=== PATIENT | female | born 1995 | race African-American/Black ===

== ENCOUNTER 2024-10-07 21:06 | Observation (INO) | payer MEDICAID ==
[~2024-10-07] VITALS: Ht 160 cm; Wt 79.4 kg
[~2024-10-07 21:06] MED LIST: ALBU0.084; BECL0.07; NEBUMIS40
[2024-10-07] MEDS: TERBUTALINE SULFATE 1 MG/ML 1ML VIAL SC SCH (22:33)
[2024-10-07] MEDS: LACTATED RINGER'S 1,000 ML IV ONE (22:45)
[2024-10-07] MEDS ORDERED: BETAMETHASONE ACET (30mg/5ml) 5ml Vial 6mg/ml ONE (23:32)
--- NOTE | 2024-10-07 23:57 | DVH ---
ULTRASOUND BIOPHYSICAL PROFILE ULTRASOUND OB LIMITED CLINICAL HISTORY: No PNC. Decreased movement. Contractions. COMPARISON: None TECHNIQUE: Real-time grayscale, color flow and M-mode imaging of the gravid uterus is performed. FINDINGS: Single living intrauterine gestation. Cephalic presentation. heart rate 144 beats per minute. The placenta is anterior. The cervix measures approximately 3 cm in length. No definite evidence of a bruption or previa at this time. measurements (cm): BPD 8.5, HC 30.7, AC 29.7, FL 6.9. Estimated weight: 2390 g Amniotic fluid index: 14.6 cm Biophysical profile: 8 out of 8. (2 breathing, 2 activity, 2 tone, 2 TERENCE) Finisher [employer] reports good movement on real-time imaging. IMPRESSION: Single living intrauterine gestation as above. Biophysical profile score 8/8.
[2024-10-08] MEDS: BETAMETHASONE ACET (30mg/5ml) 5ml Vial 6mg/ml IM SCH (00:04)
[2024-10-08] MEDS: LACTATED RINGER'S 1,000 ML IV SCH (00:05)
--- NOTE | 2024-10-08 00:26 | DVHDS2 ---
Physician Discharge Progress N Final Diagnosis: IUP @ 33w 3d Contraction Limited care Operations or Procedures: Operations or Procedures EFM IV hydration Tocolysis Bio Physical Profile Steroids to accelerate lung maturity Other Interventions Other Interventions S: 28yo G3,2001 [place] [facility]. She reports EDC of 11/23/24 and started feeling rectal pressure 2-3hours ago; went to [place] but unable to have a bowel movement. Hence she decides to come in to r/o PTL Also reports decreased movements, no LOF, or vaginal bleeding, no STOREY or vision changes. States she receives care with [place] and last visit was in August, yet to start care with an Restaurant Cashier since she just moved here Denies any urinary symptom PMH: h/o Asthma, no surgery OB Hist: G3,2001, NSVDx2, PPH with G#1 FAMILY HISTORY: Noncontributory. REVIEW OF SYSTEM Constitutional: No symptom reported Ears, Nose, & Throat: No symptom reported Eyes: No symptom reported Pulmonary/Respiratory: No symptom reported Cardiovascular: No symptom reported Gastrointestinal: No symptom reported Genitourinary: No symptom reported Musculoskeletal: No symptom reported Skin: No symptom reported Psychiatric: No symptom reported Endocrine: No symptom reported Hematologic/Lymphatic: No symptom reported O: PE: A&O x3, NAD, well groomed. pleasant. Appropriate and normal mood and affect Afebrile, VSS Respiration unlabored Heart and lungs sounds: normal Abdomen: Gravid, non-tender to palpation. Fundal Ht 38cm. Cephalic presentation Extremities: No edema VE: Close/ long/posterior cervix, medium in consistency UC: q2-4min x 60secs FHR baseline 140bpm with moderate variability and accelerations, no deceleration A: IUP @ 33w 3d Contractions Category 1 EFM Tracing P: IV hydration with LR Tocolysis with Terbutaline OB US complete and Biophysical Profile Re-assessment at 0001 UCs: occasional contractions 1 in 30minutes FHR baseline 140bpm with moderate variability and accelerations, no deceleration Patient declined repeat VE Plan: Administer Celestone 12mg intramuscularly; i.m; repeat in 24 hours Discharge home 3rd trimester emergency signs and symptoms reviewed with patient, advised to go to nearest hospital / ER if any Advised to f/u on seeking OB care provider vesna; given information to OB clinic and [facility]. Condition on Discharge: Stable Disposition: Home Discharge Instructions: Diet: Regular Diet comment: Routine regular diet rich in fiber, protein, iron and vitamin C with adequate fluid intake. Activity: No Restrictions, As Tolerated Activity comment: Balance activities with rest periods No heavy lifting, pushing or straining. Follow Up/Referral: 3rd trimester emergency S&S FMC, PTL & pre-eclampsia precautions reviewed with pt; advised to seek health care if any Advised to establish care here in the [facility] and to return if any symptom Medications: None Follow Up Care: Discharge Statement: 3rd trimester emergency S&S FMC, PTL & pre-eclampsia precautions reviewed with pt; advised to seek health care if any "Patient was advised to return to the ER or call 911 if any headaches, dizziness, shortness of breath, chest pain, abdominal pain, bleeding, fevers, or worsening of medical condition. Patient was counseled about treatment plan, medications, possible side effects, patientverbalized understanding. All questions were answered to the best of my ability. This discharge took greater then 30 minutes in planning, reviewing d ocumentation, counseling the patient, and discussing with other team members." Visit Coding OBGYN Date of Service: Oct 08, 2024 Billing Provider: ZACK GUZMAN CNM FACE WORKER Common Visit Codes: 47181-GPR/OBS SAME DATE ([facility]) FACE WORKER Procedure Codes: 70968-70- NON-STRESS TEST ZACK GUZMAN CNM Oct 08, 2024 00:25
[2024-10-08] MEDS ORDERED: BETAMETHASONE ACET (30mg/5ml) 5ml Vial 6mg/ml IM SCH (10:00)
[2024-10-08] MEDS ORDERED: NITR-87 PO (22:59)
[2024-10-08] MEDS ORDERED: PREN-96 PO (23:07)
== END 2024-10-08 00:43 | disposition home or self-care (01) ==
LOC: LDRP 21:06
PROVIDERS: ADMIT Obstetrics & Gynecology; ATTEND Obstetrics & Gynecology
DX: O60.03 Preterm labor without delivery, third trimester (principal); O99.513 Diseases of the respiratory system complicating pregnancy, third trimester; J45.909 Unspecified asthma, uncomplicated; O09.33 Supervision of pregnancy with insufficient antenatal care, third trimester; Z3A.33 33 weeks gestation of pregnancy; Z79.899 Other long term (current) drug therapy; Z98.890 Other specified postprocedural states
CPT/HCPCS: 59025; 76805; 76819; 81002; 94760; 96360; 96361; 96372; G0378; J0702; J3105

== ENCOUNTER 2024-10-08 11:20 | Observation (INO) | payer MEDICAID ==
[~2024-10-08] VITALS: Ht 160 cm; Wt 77.1 kg
[2024-10-08] MEDS: BETAMETHASONE ACET (30mg/5ml) 5ml Vial 6mg/ml IM ONE (20:23)
[2024-10-08] MEDS: TERBUTALINE SULFATE 1 MG/ML 1ML VIAL SC SCH (21:22)
[2024-10-08] MEDS ORDERED: cefTRIAXone SOD 1,000 MG VL IV ONE (21:30)
[2024-10-08] MEDS: cefTRIAXone SOD 1,000 MG VL IM ONE (22:42)
--- NOTE | 2024-10-08 22:48 | DVHDS2 ---
Physician Discharge Progress N Final Diagnosis: IUP at 33w 4d Contractions UTI Operations or Procedures: Operations or Procedures S: Ms Morris presents to place for 2nd dose of Celestone. She reports frequent urination; every five minutes and volume is just a little. She reports active normal movements, no LOF, no VB O: A&O x3, NAD Respiration unlabored No CVA tenderness, Positive suprapubic tenderness Contractions noted on EFM; initially 1 in 10minutes, frequency shortly increased to every 1 to 4minutes. FHR baseline 125 bpm, moderate variability, accelerations present, no decel POC UA: Large Ketones and + leukocytes [place]: + clue cells VE: cervix closed/30%/high/posterior and soft A: IUP at 33w 4d Contractions UTI BV Category I FHR tracing P: Oral hydration Unable to get IV access & pt declined after one failed attempt. Tocolysis with Terbutaline [id number] Celestone 12mg intramuscularly Ceftriaxone 1G intramuscularly Discharged home on Macrobid 100mg PO BID x7d Metronidazole0.75% vaginal gel, 1 applic. PV at bedtime x 5days 3rd trimester emergency S&S FMC, PTL & pre-eclampsia precautions reviewed with pt; advised to seek health care if any Advised to follow up on establishing care here in the [facility]; already given information to [facility] Condition on Discharge: Stable Disposition: Home Discharge Instructions: Diet: Regular Activity: No Restrictions, As Tolerated Activity comment: Balance activities with rest periods Follow Up/Referral: 3rd trimester emergency S&S FMC, PTL & pre-eclampsia precautions reviewed with pt; advised to seek health care if any. Also advised to establish care with OB Provider in the area. Medications: Macrobid tabs and metronidazole 0.75% vaginal gel Follow Up Care: Discharge Statement: 3rd trimester emergency S&S FMC, PTL & pre-eclampsia precautions reviewed with pt; advised to seek health care if any "Patient was advised to return to the ER or call 911 if any headaches, dizziness, shortness of breath, chest pain, abdominal pain, bleeding, fevers, or worsening of medical condition. Patient was counseled about treatment plan, medications, possible side effects, patientverbalized understanding. All questions were answered to the best of my ability. This discharge took greater then 30 minutes in planning, reviewing documentation, counseling the patient, and discussing with other team members." Visit Coding OBGYN Date of Service: Oct 08, 2024 Billing Provider: ZACK GUZMAN CNM AUDIENCE COORDINATOR Common Visit Codes: 79191-NUR/OBS SAME DATE ([facility]) AUDIENCE COORDINATOR Procedure Codes: 61594-44- NON-STRESS TEST ZACK GUZMAN CNM Oct 08, 2024 22:48
[2024-10-08] MEDS ORDERED: NITR-87 PO (22:59)
[2024-10-08] MEDS ORDERED: PREN-96 PO (23:07)
[2024-10-08 23:16] LABS: Vaginal Bacteria Moderate; Vaginal Clue Cells Moderate; Vaginal Epithelial Cells Many; Vaginal Trichomonas Not Present
== END 2024-10-09 01:27 | disposition home or self-care (01) ==
LOC: LDRP 20:01
PROVIDERS: ADMIT Obstetrics & Gynecology; ATTEND Obstetrics & Gynecology
DX: O60.03 Preterm labor without delivery, third trimester (principal); O23.43 Unspecified infection of urinary tract in pregnancy, third trimester; O62.9 Abnormality of forces of labor, unspecified; Z3A.33 33 weeks gestation of pregnancy; N39.0 Urinary tract infection, site not specified; Z98.890 Other specified postprocedural states; Z79.899 Other long term (current) drug therapy
CPT/HCPCS: 59025; 81002; 87210; 94760; 96372; G0378; J0696; J3105

== ENCOUNTER 2024-10-29 13:35 | Observation (INO) | payer MEDICAID ==
[~2024-10-29 13:35] MED LIST changes: +NITR-87 PO; +PREN-96 PO
[2024-10-29 15:03] LABS: Hematocrit 27.5 % (36.0-46.0); Hemoglobin 9.2 g/dL (12.2-16.2); Mean Corpuscular Hemoglobin 28.1 pg (28.0-32.0); Mean Corpuscular Volume 84.1 fL (80.0-100.0); Nucleated Red Blood Cells % 0.1 %
[2024-10-29 15:17] LABS: Alanine Aminotransferase 17 U/L (7-40); Albumin 4.1 g/dL (3.2-4.8); Anion Gap 11 (5-15); BUN/Creatinine Ratio 8.8 (10.0-20.0); Calcium 9.1 mg/dL (8.7-10.4); Glucose 80 mg/dL (74-106); INR 0.92 (0.9-1.15); Partial Thromboplastin Time 25.7 SEC (24.5-34.5); Potassium 3.6 mmol/L (3.5-5.1); Prothrombin Time 9.8 sec (9.3-11.8); Sodium 138 mmol/L (136-145); Total Protein 6.4 g/dL (5.7-8.2)
[2024-10-29 15:18] LABS: Bilirubin, Total 0.3 mg/dL (0.2-1.0)
[2024-10-29 15:20] LABS: Alkaline Phosphatase 140 U/L (46-116); Blood Urea Nitrogen 5 mg/dL (9-23); Carbon Dioxide 19 mmol/L (20-31); Chloride 108 mmol/L (98-107)
[2024-10-29 15:51] LABS: Urine Protein, UAD Negative (Negative)
[2024-10-29 15:55] LABS: Amphetamine Screen, Urine Neg (NEGATIVE); Barbiturate Scree,Urine Neg (NEGATIVE); Benzodiazephine Screen, Urine Neg (NEGATIVE); Cannabinoid Screen, Urine Neg (NEGATIVE); Cocaine Screen, Urine Neg (NEGATIVE); Opiate Scree,Urine Neg (NEGATIVE); Phencyclidine Screen, Urine Neg (NEGATIVE)
--- NOTE | 2024-10-29 16:00 | DVH ---
BIOPHYSICAL PROFILE HISTORY: No care/ Contractions TECHNIQUE: Multiple transabdominal real-time grayscale sonographic images through the gravid uterus of the fetus with duplex Doppler color flow and M-mode spectral analysis FINDINGS: BIOPHYSICAL PROFILE: breathing score: 2 movement score: 2 tone score: 2 Quantitative TERENCE score: 2 (TERENCE: 11.6 Cm.) Total score: 8/8 The cervix 3.61 cm long and appears closed. Single live fetus in cephalic presentation. heart rate 135 beats per minute. Anterior Grade 2-3 placenta without previa or abruption Single live fetus at 36 weeks 3 days Biophysical profile score 8/8 corresponding to an ROYCE of 11/23/2024 IMPRESSION: 1. Biophysical profile score: 8/8
--- NOTE | 2024-10-29 16:08 | DVH ---
LIMITED OB ULTRASOUND > 14 WKS: HISTORY: No care/contractions TECHNIQUE: Multiple real-time grayscale images of the gravid uterus with duplex Doppler color flow an d M-mode spectral analysis. COMPARISON: US OB ULTRASOUND COMP GTR 14 WKS on DOS: 10/07/24 FINDINGS: IUP single live fetus at 36 weeks 1 day based on composite averages of the BPD, head circumference, a bdominal circumference and femur length. Estimated weight 2858 grams. heart rate 135 beats per minute. TERENCE 11.6 cm Cervix appears closed and measures 3.6 cm in length. Cephalic presentation Grade 3 placenta without previa or abruption, in anterior position. IMPRESSION: 1. IUP single live fetus at 36 weeks 1 day AUA corresponding to an ROYCE of 11/25/2024. 2. Estimated weight of 2858 g.
--- NOTE | 2024-10-30 12:28 | DVHDS2 ---
Physician Discharge Progress N Final Diagnosis: no care,abd pain 35wks Operations or Procedures: Operations or Procedures nst reactive reviwed,sono Condition on Discharge: Good Disposition: Home Discharge Instructions: Diet: Regular Activity: No Restrictions, As Tolerated Medications: na Follow Up Care: Specialist: 3d Discharge Statement: "Patient was advised to return to the ER or call 911 if any headaches, dizziness, shortness of breath, chest pain, abdominal pain, bleeding, fevers, or worsening of medical condition. Patient was counseled about treatment plan, medications, possible side effects, patientverbalized understanding. All questions were answered to the best of my ability. This discharge took greater then 30 minutes in planning, reviewing documentation, counseling the patient, and discussing with other team members." Visit Coding OBGYN Date of Service: Oct 30, 2024 Billing Provider: JOSE BLAIR DO CHLORINATOR Common Visit Codes: 84431-[id number] INP/OBS CARE (HIGH) CHLORINATOR Procedure Codes: 22146-40- NON-STRESS TEST JOSE BLAIR DO Oct 30, 2024 12:28
[2024-11-01 00:06] LABS: Chlamydia Trachomatis, NAA Negative (Negative); Neisseria gonorrhoeae, NAA Negative (Negative)
== END 2024-10-29 15:58 | disposition home or self-care (01) ==
LOC: LDRP 13:35
PROVIDERS: ADMIT Obstetrics & Gynecology; ATTEND Obstetrics & Gynecology
DX: O26.893 Other specified pregnancy related conditions, third trimester (principal); R10.9 Unspecified abdominal pain; O62.9 Abnormality of forces of labor, unspecified; R68.83 Chills (without fever); Z3A.35 35 weeks gestation of pregnancy; Z98.890 Other specified postprocedural states; Z79.899 Other long term (current) drug therapy
CPT/HCPCS: 36415; 59025; 76805; 76819; 80053; 80307; 81002; 81003; 83036; 85025; 85610; 85730; 86703; 86762; 86780; 86803; 86850; 86900; 86901; 87081; 87340; 87491; 87591; 94760; G0378

== ENCOUNTER 2024-11-06 09:20 | Observation (INO) | payer MEDICAID ==
--- NOTE | 2024-11-06 10:30 | DVH ---
Procedure: US BIOPHYSICAL PROFILE 11/06/2024 09:57 AM Indication: CONTRACTIONS Comparison: US OB ULTRASOUND COMP GTR 14 WKS on DOS: 10/29/24, US BIOPHYSICAL PROFILE on DOS: 10/29/24, US OB ULTRASOUND COMP GTR 14 WKS on DOS: 10/07/24 Technique: Sonogram of gravid uterus utilizing grayscale and color techniques. FINDINGS: Single living intrauterine gestation. Presentation: Cephalic Placenta: Anterior heart rate: 130 bpm TERENCE: 13.9 cm, DVP: 2.9 cm Maternal cervix: Not visualized Biophysical Profile: breathing score: 2 movement score: 2 tone: 2 Quantitative TERENCE score: 2 Total score: 8/8 IMPRESSION: 1. Single living as above. 2. Biophysical profile score: 8/8.
--- NOTE | 2024-11-06 11:03 | DVH ---
LIMITED OB ULTRASOUND > 14 WKS: HISTORY: EFW TECHNIQUE: Multiple real-time grayscale images of the gravid uterus with duplex Doppler color flow an d M-mode spectral analysis. TRANSDUCER: Transabdominal COMPARISON: US OB ULTRASOUND COMP GTR 14 WKS on DOS: 10/29/24, US OB ULTRASOUND COMP GTR 14 WKS on DOS : 10/07/24 FINDINGS: IUP single live fetus at 36 weeks and 5 days based on composite averages of the BPD, head circumferen ce, abdominal circumference and femur length Estimated weight 3027 grams heart rate 131 beats per minute TERENCE 13.9 cm Cervix is not visualized Cephalic Presentation AnteriorPlacenta without previa or abruption. IMPRESSION: IUP single live fetus at 36 weeks and 5 days AUA corresponding to an ROYCE of 11/29/2024
--- NOTE | 2024-11-06 16:10 | DVHDS2 ---
Physician Discharge Progress N Final Diagnosis: Suspected excessive growth Poor PNL care Secondary Diagnosis: Encounter for NST Operations or Procedures: Operations or Procedures NST/BPP OB SONO for EFW/TERENCE ALL WNL PATIENT: GRACIE THORNTON ACCT: [id number] UNIT: [id number] : 1995 LOC: [facility] ROOM / BED: TRIAGE1 / A AGE / SEX: 28 / F ADM STATUS: ADM IN SERVICE [id number] ORDERING PHYSICIAN: JOSE BLAIR DO PROCEDURE(s): OBUS - OB ULTRASOUND COMP GTR 14 WKS REASON: EFW ORDER NUMBER(s): [id number], ACCESSION NUMBER(s): [id number] LIMITED OB ULTRASOUND > 14 WKS: HISTORY: EFW TECHNIQUE: Multiple real-time grayscale images of the gravid uterus with duplex Doppler color flow and M-mode spectral analysis. TRANSDUCER: Transabdominal COMPARISON: US OB ULTRASOUND COMP GTR 14 WKS on DOS: 10/29/24, US OB ULTRASOUND COMP GTR 14 WKS on DOS: 10/07/24 FINDINGS: IUP single live fetus at 36 weeks and 5 days based on composite averages of the BPD, head circumference, abdominal circumference and femur length Estimated weight 3027 grams heart rate 131 beats per minute TERENCE 13.9 cm Cervix is not visualized Cephalic Presentation AnteriorPlacenta without previa or abruption. IMPRESSION: IUP single live fetus at 36 weeks and 5 days AUA corresponding to an ROYCE of 0 11/29/2024 Condition on Discharge: Stable Disposition: Home Discharge Instructions: Diet: Regular Activity: No Restrictions, As Tolerated Follow Up/Referral: as scheduled Medications: NA Follow Up Care: Discharge Statement: "Patient was advised to return to the ER or call 911 if any headaches, dizziness, shortness of breath, chest pain, abdominal pain, bleeding, fevers, or worsening of medical condition. Patient was counseled about treatment plan, medications, possible side effects, patientverbalized understanding. All questions were answered to the best of my ability. This discharge took greater then 30 minutes in planning, reviewing documentation, counseling the patient, and discussing with other team members." Visit Coding OBGYN Date of Service: Nov 06, 2024 Billing Provider: VANESA MO DO EPIC RADIANT ANALYST Common Visit Codes: 69878-HLX/OBS SAME DATE ([facility]) EPIC RADIANT ANALYST Procedure Codes: 35541-88- NON-STRESS TEST VANESA MO DO Nov 06, 2024 16:10
== END 2024-11-06 11:05 | disposition home or self-care (01) ==
LOC: LDRP 09:20
PROVIDERS: ADMIT Obstetrics & Gynecology; ATTEND Obstetrics & Gynecology
DX: O36.63X0 Maternal care for excessive fetal growth, third trimester, not applicable or unspecified (principal); Z3A.37 37 weeks gestation of pregnancy; Z98.890 Other specified postprocedural states; Z79.899 Other long term (current) drug therapy
CPT/HCPCS: 59025; 76805; 76819; 81002; G0378

== ENCOUNTER 2024-11-17 10:40 | Observation (INO) | payer MEDICAID ==
--- NOTE | 2024-11-17 11:56 | DVHDS2 ---
Physician Discharge Progress N Final Diagnosis: labor [id number] Operations or Procedures: Operations or Procedures nst reactive reviwed,sono Condition on Discharge: Good Disposition: Home Discharge Instructions: Diet: Regular Activity: No Restrictions, As Tolerated Medications: na Follow Up Care: Specialist: 1d Discharge Statement: "Patient was advised to return to the ER or call 911 if any headaches, dizziness, shortness of breath, chest pain, abdominal pain, bleeding, fevers, or worsening of medical condition. Patient was counseled about treatment plan, medications, possible side effects, patientverbalized understanding. All questions were answered to the best of my ability. This discharge took greater then 30 minutes in planning, reviewing doc umentation, counseling the patient, and discussing with other team members." Visit Coding OBGYN Date of Service: Nov 17, 2024 Billing Provider: JOSE BLAIR DO ELECTRODE TURNER AND FINISHER Common Visit Codes: 58675-UKICTIS OBS CARE (HIGH) ELECTRODE TURNER AND FINISHER Procedure Codes: 33769-23- NON-STRESS TEST JOSE BLAIR DO Nov 17, 2024 11:56
--- NOTE | 2024-11-17 12:26 | DVH ---
BIOPHYSICAL PROFILE HISTORY: EFW TECHNIQUE: Multiple transabdominal real-time grayscale sonographic images through the gravid uterus of the fetus with duplex Doppler color flow and M-mode spectral analysis FINDINGS: BIOPHYSICAL PROFILE: breathing score: 2 movement score: 2 tone score: 2 Quantitative TERENCE score: 2 (TERENCE: 11.8 Cm.) Total score: 8 The cervix not well visualized. Single live fetus in cephalic presentation. heart rate 138 beats per minute. Anterior heterogeneous placenta without previa or abruption Single live fetus at 38 weeks 3 days. Biophysical profile score 8 corresponding to an ROYCE of 11/28/2024. Estimated weight 3530 g IMPRESSION: Biophysical profile score: 8
== END 2024-11-17 12:33 | disposition home or self-care (01) ==
LOC: LDRP 10:40 → UNDOADMOB 10:40 → LDRP 11:18
PROVIDERS: ADMIT Obstetrics & Gynecology
DX: O62.9 Abnormality of forces of labor, unspecified (principal); O26.893 Other specified pregnancy related conditions, third trimester; R10.9 Unspecified abdominal pain; Z3A.39 39 weeks gestation of pregnancy; Z79.899 Other long term (current) drug therapy
CPT/HCPCS: 59025; 76805; 76819; 81002; 94760; G0378

== ENCOUNTER 2024-11-22 22:08 | Inpatient (IN) | payer MEDICAID ==
[~2024-11-22] VITALS: Ht 160 cm; Wt 85.3 kg
[2024-11-22] MEDS ORDERED: LIDOCAINE 2%HCL (LOCAL ANESTH.) INJ 20ML MDV IJ PRN (22:30)
[2024-11-22] MEDS ORDERED: NALBUPHINE HCL 10 MG/1ml INJECTION IV PRN (22:30)
[2024-11-22 23:03] LABS: Hematocrit 26.8 % (36.0-46.0); Hemoglobin 9.1 g/dL (12.2-16.2); Mean Corpuscular Hemoglobin 27.7 pg (28.0-32.0); Mean Corpuscular Volume 81.5 fL (80.0-100.0); Nucleated Red Blood Cells % 0.1 %
[2024-11-22 23:10] LABS: Urine Protein, UAD Negative (Negative)
[2024-11-22 23:23] LABS: INR 0.91 (0.9-1.15); Partial Thromboplastin Time 24.0 SEC (24.5-34.5); Prothrombin Time 9.7 sec (9.3-11.8)
[2024-11-22 23:56] LABS: Alanine Aminotransferase 31 U/L (7-40); Albumin 4.1 g/dL (3.2-4.8); Alkaline Phosphatase 184 U/L (46-116); Anion Gap 10 (5-15); BUN/Creatinine Ratio 7.7 (10.0-20.0); Bilirubin, Total 0.3 mg/dL (0.2-1.0); Blood Urea Nitrogen 5 mg/dL (9-23); Calcium 8.8 mg/dL (8.7-10.4); Carbon Dioxide 18 mmol/L (20-31); Chloride 109 mmol/L (98-107); Glucose 127 mg/dL (74-106); Potassium 3.6 mmol/L (3.5-5.1); Sodium 137 mmol/L (136-145); Total Protein 6.7 g/dL (5.7-8.2)
--- NOTE | 2024-11-22 23:58 | DVHHP2 ---
OB CC & HPI Date Date of Admission: Nov 22, 2024 Patient Identification: : 3 Para: 2 EDC: Nov 23, 2024 EGA: 39.6 Chief Complaints: Reason for admission: induction of labor Indication for induction: other (GDM, A1) Admission Nurse Assessment Rev: Yes History of Present Complaints 28 yo IUP @ 39.6wk presents to labor to labor and delivery for term IOL for GDM, HbA1C 6.1, denies LOF/ VB, STOREY, blurry vision or epigastric pain, endorses +FM, pt states she feels some UC. Pt reports taking keflex for the last two days for UTI. PNC with Dr. Jara at [facility], GBS negative. PNC complicated by GDM,A1 due to elevated HgA1c of 6.1%, pt did not do GTT. Dating based on LMP of 02/15/24, OB hx: #1 - 2015, F, 37 wks, , PPH #2 - 2019, M, 40 wks, , uncomplicated #3 - current, wants to give up for adoption, plan in place Past Medical History Cardiac: No pertinent Hx Pulmonary: Asthma (uses inhaler every morning, last use was 2 days ago) Central Nervous System: No pertinent Hx GI: No pertinent Hx Hemotology/Oncology: No pertinent Hx Hepatobiliary: No pertinent Hx Psychiatric: No pertinent Hx Musculoskeletal: No pertinent Hx Rheumotologic: No pertinent Hx Infectious Disease: No peritnent Hx ENT: No pertinent Hx Renal/: No pertinent Hx Endocrine: No pertinent Hx Dermatology: No pertinent Hx Past Surgical History: No pertinent Hx OB History OB History Care: Good Care Ultrasounds: Normal mid trimester US Obstetrical Complications: Gestational Diabetes Medical Complications: None Allergies: Coded Allergies: NO KNOWN ALLERGIES (Unverified , 09/17/09) Home Meds Reported Medications Vit W/ Ferrous Fumara ( One Daily) Daily Tab, 1 TAB PO DAILY, #90 TAB 3 Refills 10/08/24 Nitrofurantoin Monohydrate Mac (Macrobid) 100 Mg Cap, 100 MG PO for 7 Days, CAP 10/08/24 Beclomethasone Dipropionate (Qvar) 40 Mcg Aer 11/18/11 Albuterol Sulfate (Albuterol Sulfate) 0.083 % Neb 11/18/11 Nebulizers (Nebulizer) Ultrason Mis 09/17/09 Current Medications Current Medications Medications (Trade) Dose Ordered Sig/Yon Route PRN Reason Start Time Stop Time Status Last Admin Lactated Ringer's 1,000 ml @ 125 mls/hr Q8H IV 11/22/24 22:30 Nalbuphine HCl (Nubain) 10 mg Q4HP PRN IV MODERATE PAIN (4-6 PAIN SCALE) 11/22/24 22:30 Diagnostic Test (Pha) (Accu-Chek Comfort Curve T) 1 strip Q4HR 11/23/24 02:00 Witch Sonal (Tucks) 1 pad PRN PRN TOP PERINEAL AREA DISCOMFORT 11/22/24 22:30 Sodium Lauryl Sulfate (Phisoderm) 240 ml PRN PRN TOP PERINEAL AREA DISCOMFORT 11/22/24 22:30 Benzocaine (Dermoplast) 1 applic PRN PRN TOP PERINEAL AREA DISCOMFORT 11/22/24 22:30 Misoprostol (Cytotec) 50 mcg Q4HPRN PRN PO CERVICAL RIPENING 11/22/24 22:30 Lidocaine HCl (Xylocaine) 20 ml ONCE PRN IJ PERINEAL AREA DISCOMFORT 11/22/24 22:30 Sodium Chloride 100 ml @ 100 mls/hr Q1H IV 11/22/24 23:30 11/23/24 00:29 Family & Social History Family/Social History Past Family/Social History: denies any family med hx, denies use of alcohol or drugs with this Blood Type: A+ Rubella: immune RPR/VDRL: Negative GBS Status: Negative HBsAG: Negative Review of Systems Constitutional: No symptom reported Ears, Nose, & Throat: No symptom reported Eyes: No symptom reported Pulmonary/Respiratory: No symptom reported Cardiovascular: No symptom reported Gastrointestinal: No symptom reported Genitourinary: No symptom reported Musculoskeletal: No symptom reported Skin: No symptom reported Psychiatric: No symptom reported Endocrine: No symptom reported Hemotologic/Lymphatic: No symptom reported OB Admission Exam Physical Exam Vitals: VSS, see chart except 1 elevated BP FHR baseline indeterminate, marked variability noted OB sono on 11/17/24: Estimated weight 3530 g, vertex HEENT: TMs Normal, Fontanelles Normal, Nasal Mucosa Normal, Eyes non-injected, Oropharynx Normal, PERRLA, Moist Membranes, EOMI Heart: Rhythm Normal Lungs: Clear Abdomen: Gravid Extremities: Normal Reflexes: Normal Pelvic Exam: SVE by RN, unsure of presentation Cervical Dilatation: Fingertip Effacement: 0% Station: -3 Membranes: Intact Bass Guitar Teacher Variability: Marked (>25) Contractions on Admission: 6-10 Minutes Apart Intensity: Mild OB Plan Plan Admitting Diagnosis: 28yo IUP @ 39.6wk Induction of labor for GDM, A1 Iron deficiency anemia in Asthma Category 2 EFM GBS negative Plan: Induction Induction Methd: Misoprostol protocol Other Plan: P: Admit to L&D Informed consent obtained Discussed risk, benefits and alternatives of IOL. pt agrees with PO Cytotec. RN to give cytotec when there is 30 min of category I EFM. OB sono ordered for presentation PreE labs ordered Routine labs ordered Rocephin 1g IVPB x1 ordered for UTI treatment per pt monitoring per order Pain mgmt PRN Frequent position changes in and out of bed encouraged Intrauterine resuscitation PRN anticipate CNM will consult with Dr Jara PRN Visit Coding OBGYN Date of Service: Nov 22, 2024 Billing Provider: AMA MORIN CNM [employer] [facility] Common Visit Codes: 41661-[id number] INP/OBS CARE (HIGH) [employer] Procedure Codes: 46959-37- NON-STRESS TEST CHACHO KEE Nov 22, 2024 23:58
[2024-11-23] LABS: Amphetamine Screen, Urine Neg (NEGATIVE); Barbiturate Scree,Urine Neg (NEGATIVE); Benzodiazephine Screen, Urine Neg (NEGATIVE); Cannabinoid Screen, Urine Neg (NEGATIVE); Cocaine Screen, Urine Neg (NEGATIVE); Opiate Scree,Urine Neg (NEGATIVE); Phencyclidine Screen, Urine Neg (NEGATIVE)
[2024-11-23] MEDS: SODIUM CHLORIDE 0.9% 100 ML IV SCH (00:07)
[2024-11-23] MEDS ORDERED: ACCU-CHEK COMFORT CURVE STRIP VI SCH (02:00)
--- NOTE | 2024-11-23 03:10 | DVH ---
INDICATION: unable to assess presenting part TECHNIQUE: Multiple real-time grayscale transabdominal sonographic images along with color and duplex Doppler of the uterus and ovaries were obtained. COMPARISON: US OB ULTRASOUND COMP GTR 14 WKS on DOS: 11/17/24, US OB ULTRASOUND COMP GTR 14 WKS on DOS : 11/06/24, US OB ULTRASOUND COMP GTR 14 WKS on DOS: 10/29/24, US OB ULTRASOUND COMP GTR 14 WKS on DOS: 10/07/24 FINDINGS: Single intrauterine gestation at 36 weeks 1 day in cephalic presentation with anterior placenta and n o evidence of previa or abruption. Positive heart tones documented at 121 beats per minute. The cervix is long and closed, measuring 4.1 cm. Current TERENCE equals 11.2 cm compared with 11.8 cm on 11/17/2024. Adequate movement detected. IMPRESSION: 1. Single viable intrauterine gestation at 36 weeks 1 day with estimated date of delivery of r 2024. 2. Positive heart tones and adequate movement. 3. No evidence of placenta previa or abruption.
[2024-11-23] MEDS: PHISODERM TOP SOLN 240ML BTL TOP PRN (03:11)
[2024-11-23] MEDS: DERMOPLAST 60ML BOTTLE TOP PRN (03:11)
[2024-11-23] MEDS: WITCH HAZEL-GLYCERIN PAD TOP PRN (03:11)
[2024-11-23] MEDS: LACTATED RINGER'S 1,000 ML IV SCH (03:15)
[2024-11-23 03:39] LABS: Protein, Urine 22.6 mg/dL (1-14)
--- NOTE | 2024-11-23 07:28 | DVHPN2 ---
Chief Complaints Patient reports: No new complaints Nursing reports: No new complaints Objective Medications Current Medications Medications (Trade) Dose Ordered Sig/Yon Route PRN Reason Start Time Stop Time Status Last Admin Benzocaine (Dermoplast) 1 applic PRN PRN TOP PERINEAL AREA DISCOMFORT 11/22/24 22:30 11/23/24 03:11 Diagnostic Test (Pha) (Accu-Chek Comfort Curve T) 1 strip Q4HR 11/23/24 02:00 Lactated Ringer's 1,000 ml @ 125 mls/hr Q8H IV 11/22/24 22:30 11/23/24 03:15 Lidocaine HCl (Xylocaine) 20 ml ONCE PRN IJ PERINEAL AREA DISCOMFORT 11/22/24 22:30 Misoprostol (Cytotec) 50 mcg Q4HPRN PRN PO CERVICAL RIPENING 11/22/24 22:30 11/23/24 03:01 Nalbuphine HCl (Nubain) 10 mg Q4HP PRN IV MODERATE PAIN (4-6 PAIN SCALE) 11/22/24 22:30 Sodium Lauryl Sulfate (Phisoderm) 240 ml PRN PRN TOP PERINEAL AREA DISCOMFORT 11/22/24 22:30 11/23/24 03:11 Witch Sonal (Tucks) 1 pad PRN PRN TOP PERINEAL AREA DISCOMFORT 11/22/24 22:30 11/23/24 03:11 Others ve-unchanged but having ucs Studies Laboratory Tests 11/22/24 22:46 Test 11/22/24 22:46 Range/Units Serum Glucose 127 H 74-106 mg/dL Ass/Plan Assessment iol gdm Plan rec one cytotec fu n with other cytotecs Visit Coding OBGYN Date of Service: Nov 23, 2024 Billing Provider: JOSE BLAIR DO INTERVENTIONAL NURSE Common Visit Codes: [id number] INP/OBS CARE (HIGH) INTERVENTIONAL NURSE Procedure Codes: 81228-10- NON-STRESS TEST JOSE BLAIR DO Nov 23, 2024 07:28
[2024-11-23] MEDS ORDERED: LACTATED RINGER'S 1,000 ML IV ONE (09:30)
[2024-11-23] MEDS ORDERED: NALOXONE HCL 0.4 MG/ML VIAL IV ONE (09:30)
[2024-11-23] MEDS ORDERED: LIDOCAINE HCL 2 %PF INJ 10ML AMP IJ ONE ×2 (09:30→09:39)
[2024-11-23] MEDS ORDERED: fentaNYL CITRATE 100 MCG/2 ML VL ONE (09:38)
[2024-11-23] MEDS ORDERED: NALOXONE HCL 0.4 MG/ML VIAL ONE (09:39)
[2024-11-23] MEDS: fentaNYL CITRATE 100 MCG/2 ML VL IV ONE (10:12)
[2024-11-23] MEDS: ROPIVACAINE HCL 100 ML ONE (10:12)
--- NOTE | 2024-11-23 11:11 | EPIDURAL ---
Anesthesia Procedural Note - Epidural Informed consent obtained?: Yes Medication Administered: Fentanyl 100 mcg Sterile prept drape: Yes Spinal level of insertion: L3-L4 Test dose of lidocaine & Epine: Negative Infusion started: Yes Start time: 09:28 End time: 15:46 Procedure description Procedure description: 28 y/o AOG 39 6/7 weeks with history of GDM is in active labor and desires PCEA for labor and delivery. Ms. Morris delivered a single live baby girl by with APGARs 8 & 9 at 1 & 5 minutes respectively. Epidural catheter pulled with tip intact. No redness, swelling, or oozing around the epidural area. Ms. Morris is back to baseline, able to keller with her and able to ambulate. Total epidural time: 44 - 4061 Total face to face time: 927. WIL NEVAREZ MD Nov 23, 2024 11:11
[2024-11-23] MEDS ORDERED: ONDANSETRON HCL 4 MG/2 ML VIAL IV PRN (11:45)
[2024-11-23] MEDS ORDERED: TERBUTALINE SULFATE 1 MG/ML 1ML VIAL SC PRN (11:45)
--- NOTE | 2024-11-23 12:03 | DVHPN2 ---
Chief Complaints Patient reports: No new complaints Nursing reports: No new complaints Objective Vitals Vital Signs Date Time Temp Pulse Resp B/P (MAP) Pulse Ox O2 Delivery O2 Flow Rate FiO2 11/23/24 10:12 143/80 Medications Current Medications Medications (Trade) Dose Ordered Sig/Yon Route PRN Reason Start Time Stop Time Status Last Admin Benzocaine (Dermoplast) 1 applic PRN PRN TOP PERINEAL AREA DISCOMFORT 11/22/24 22:30 11/23/24 03:11 Diagnostic Test (Pha) (Accu-Chek Comfort Curve T) 1 strip Q4HR 11/23/24 02:00 Lactated Ringer's 1,000 ml @ 125 mls/hr Q8H IV 11/22/24 22:30 11/23/24 08:43 Lidocaine HCl (Xylocaine) 20 ml ONCE PRN IJ PERINEAL AREA DISCOMFORT 11/22/24 22:30 Misoprostol (Cytotec) 50 mcg Q4HPRN PRN PO CERVICAL RIPENING 11/22/24 22:30 11/23/24 08:42 Nalbuphine HCl (Nubain) 10 mg Q4HP PRN IV MODERATE PAIN (4-6 PAIN SCALE) 11/22/24 22:30 Ondansetron HCl (Zofran) 4 mg Q4HPRN PRN IV NAUSEA / VOMITING 11/23/24 11:45 Oxytocin 1,000 ml @ 6 ml/hr Q24H IV 11/23/24 11:45 Sodium Lauryl Sulfate (Phisoderm) 240 ml PRN PRN TOP PERINEAL AREA DISCOMFORT 11/22/24 22:30 11/23/24 03:11 Terbutaline Sulfate (Brethine Inj) 0.25 mg ONCE PRN SC Uterine tachysystole 11/23/24 11:45 Witch Sonal (Tucks) 1 pad PRN PRN TOP PERINEAL AREA DISCOMFORT 11/22/24 22:30 11/23/24 03:11 Others ve-6/50/-2 Studies Laboratory Tests 11/22/24 22:46 Test 11/22/24 22:46 Range/Units Serum Glucose 127 H 74-106 mg/dL Ass/Plan Assessment active laboriol gdm Plan pt had srom ,cont with current care Visit Coding OBGYN Date of Service: Nov 23, 2024 Billing Provider: JOSE BLAIR DO AUTOMAT CAR ATTENDANT Common Visit Codes: [id number] INP/OBS CARE(HIGH) AUTOMAT CAR ATTENDANT Procedure Codes: 82303-87- NON-STRESS TEST JOSE BLAIR DO Nov 23, 2024 12:03
[2024-11-23] MEDS: LACT. RINGERS/OXYTOCIN 20UNITS 1,000 ML IV SCH (13:20)
--- NOTE | 2024-11-23 14:29 | DVHPN2 ---
Chief Complaints Patient reports: No new complaints Nursing reports: No new complaints Objective Vitals Vital Signs Date Time Temp Pulse Resp B/P (MAP) Pulse Ox O2 Delivery O2 Flow Rate FiO2 11/23/24 10:12 143/80 Medications Current Medications Medications (Trade) Dose Ordered Sig/Yon Route PRN Reason Start Time Stop Time Status Last Admin Benzocaine (Dermoplast) 1 applic PRN PRN TOP PERINEAL AREA DISCOMFORT 11/22/24 22:30 11/23/24 03:11 Diagnostic Test (Pha) (Accu-Chek Comfort Curve T) 1 strip Q4HR 11/23/24 02:00 Lactated Ringer's 1,000 ml @ 125 mls/hr Q8H IV 11/22/24 22:30 11/23/24 08:43 Lidocaine HCl (Xylocaine) 20 ml ONCE PRN IJ PERINEAL AREA DISCOMFORT 11/22/24 22:30 Misoprostol (Cytotec) 50 mcg Q4HPRN PRN PO CERVICAL RIPENING 11/22/24 22:30 11/23/24 08:42 Nalbuphine HCl (Nubain) 10 mg Q4HP PRN IV MODERATE PAIN (4-6 PAIN SCALE) 11/22/24 22:30 Ondansetron HCl (Zofran) 4 mg Q4HPRN PRN IV NAUSEA / VOMITING 11/23/24 11:45 Oxytocin 1,000 ml @ 6 ml/hr Q24H IV 11/23/24 11:45 11/23/24 13:20 Sodium Lauryl Sulfate (Phisoderm) 240 ml PRN PRN TOP PERINEAL AREA DISCOMFORT 11/22/24 22:30 11/23/24 03:11 Terbutaline Sulfate (Brethine Inj) 0.25 mg ONCE PRN SC Uterine tachysystole 11/23/24 11:45 Witch Sonal (Tucks) 1 pad PRN PRN TOP PERINEAL AREA DISCOMFORT 11/22/24 22:30 11/23/24 03:11 Others ve-10cm/100/-1 Studies Laboratory Tests 11/22/24 22:46 Test 11/22/24 22:46 Range/Units Serum Glucose 127 H 74-106 mg/dL Ass/Plan Assessment active laboriol gdm Plan trial of pushing Visit Coding OBGYN Date of Service: Nov 23, 2024 Billing Provider: JOSE BLAIR DO INSURANCE CLAIMS PROCESSOR Common Visit Codes: [id number] INP/OBS CARE(HIGH) INSURANCE CLAIMS PROCESSOR Procedure Codes: 08009-98- NON-STRESS TEST JOSE BLAIR DO Nov 23, 2024 14:29
--- NOTE | 2024-11-23 15:31 | LDN2 ---
Labor and Delivery Note Date 11/23/24 Age 28 3 Para 3 EDC 9-4 EGA 39WKS Diagnosis IOL FOR GDM Vaginal Delivery: VTX Vacuum Assisted: Yes Placenta: Spontaneous Sex: Female Apgars 8-9 Nuchal Cord Transected: No Amniotic Fluid: Clear Anesthesia EPIDURAL Episiotomy: No Extension: No EBL 300ML Labs Laboratory Tests 10/29/24 14:50: Hepatitis B Surface Antigen Negative, HIV (1&2) Antibody Negative, Rubella Antibody Positive Blood Bank 11/22/24 22:46: Blood Type A POSITIVE Complications NONE Conditions STABLE Comments/Significant Med Torsten SPEC EXAM NO CXAL LAC PT HAD VACCUM DEL DUE TO POOR PUSHING EFFORT AND DECL PT GRANTED PERMISSION AND BABY WAS DEL WITH 2 PULLS Visit Coding OBGYN Date of Service: Nov 23, 2024 Billing Provider: JOSE BLAIR DO WEIGHT SHIFTER Common Visit Codes: [id number] INP/OBS CARE(HIGH) WEIGHT SHIFTER Procedure Codes: [id number] DELIVERY ONLY JOSE BLAIR DO Nov 23, 2024 15:31
[2024-11-23] MEDS: LACT. RINGERS/OXYTOCIN 20UNITS 500 ML IV ONE ×2 (15:51→15:52)
[2024-11-23] MEDS ORDERED: ACETAMINOPHEN 325 MG TAB PO PRN (16:00)
[2024-11-23 18:15] VITALS: BP 144/83; PULSE 70; RESP 18; TEMP 98.3; O2SAT 98
[2024-11-23 19:00] VITALS: BP 144/83; PULSE 70; RESP 18; TEMP 98.3; O2SAT 98
[2024-11-23] MEDS: IBUPROFEN 600 MG TAB PO PRN (22:46)
[2024-11-23] MEDS: DOCUSATE SOD 100 MG CAP PO SCH (22:46)
[2024-11-23 22:51] VITALS: BP 128/70; PULSE 73; TEMP 98.5; O2SAT 98
--- NOTE | 2024-11-24 01:29 | DVHPN2 ---
Progress Note Date Seen: Nov 24, 2024 Subjective Patient resting L lateral upon entry to the room. Baby in nursery, as she is to be adopted SUBJECTIVE -Lochia minimal -Tolerating regular diet well. -Ambulating and voiding well w/o feeling lightheaded or dizzy. -Passing flatus but no BM yet - Contraceptive plan: Patient would like a nexplanon arm implant -Desires and requests to be discharged home today (11/24) vital signs Vital Sign Date Time Temp Pulse Resp B/P (MAP) Pulse Ox O2 Delivery O2 Flow Rate FiO2 11/23/24 22:51 98.5 73 128/70 (89) 98 98.5 11/23/24 19:00 Room Air 11/23/24 19:00 18 Total Intake and Output 11/23/24 11/23/24 11/24/24 15:00 23:00 07:00 Output Total 2700 ml Balance -2700 ml medications Current Medications Medications Dose Ordered Sig/Yon Route Start Time Stop Time Status Last Admin Dose Admin Diagnostic Test (Pha) 1 strip Q4HR 11/23/24 02:00 Dannielle Pruitt 1 pad PRN PRN TOP 11/22/24 22:30 11/23/24 03:11 1 PAD Sodium Lauryl Sulfate 240 ml PRN PRN TOP 11/22/24 22:30 11/23/24 03:11 240 ML Benzocaine 1 applic PRN PRN TOP 11/22/24 22:30 11/23/24 03:11 1 APPLIC Ondansetron HCl 4 mg Q4HPRN PRN IV 11/23/24 11:45 Ibuprofen 600 mg Q6HP PRN PO 11/23/24 16:00 11/23/24 22:46 600 MG Acetaminophen 650 mg Q4HP PRN PO 11/23/24 16:00 Docusate Sodium 200 mg HS PO 11/23/24 22:00 11/23/24 22:46 200 MG laboratory and microbiology Laboratory Tests 11/22/24 22:46 Test 11/22/24 22:46 Range/Units Serum Glucose 127 H 74-106 mg/dL Objective OBJECTIVE -A&O x4. No apparent distress. Affect appropriate -Afebrile, VSS -Chest: heart and lung sounds normal. -Abdomen: normal BS, soft, non-tender, no rebound or guarding, fundus firm @ U- 1, lochia minimal -Perineum: no edema, or erythema, intact -Extremities: no edema or tenderness Problems(with codes): (1) (normal spontaneous vaginal delivery) (2) GDM, class A1 Assessment/Plan ASSESSMENT -28 yo now ppd #1 s/p doing well. -Blood Type: A+ -Baby to be adopted -Rubella Immune PLAN -Continue pain management with oral medications as previously ordered -Increase fluid intake and fiber in diet to promote regular bowel movements, Laxative PRN -Encouraged patient to continue taking vitamin and iron -Educated patient on self care and warning signs of PPH, PPD, and pre-eclampsia. Discussed suppression. Answered all pt questions and concerns -Continue routine care and anticipate discharge today once adoption paperwork is cleared Plan discussed with: Patient Visit Coding OBGYN Date of Service: Nov 24, 2024 Billing Provider: CASSANDRA MCDOWELL CNM TWINE REELING MACHINE OPERATOR Common Visit Codes: [id number] INP/OBS CARE(HIGH) CASSANDRA MCDOWELL CNM Nov 24, 2024 01:29
--- NOTE | 2024-11-24 01:38 | DVHDS2 ---
Obstetrics Discharge Summary Obstetrics Discharge Summary Date of Admission: Nov 22, 2024 Date of Discharge: Nov 24, 2024 Reason For Admission: Induction of Labor (GDMA1) Intrapartum Procedures: Vacuum Extraction (VAVD) Operative Complicat: None Discharge Diagnosis: Term -Delivered Discharge Information: Activity (Unrestricted. Advance as tolerated. Balance activities with rest periods. No heavy lifting, pushing or straining. Pelvic rest x 6 weeks), Diet (Routine regular diet rich in fiber, protein, iron and vitamin C with adequate fluid intake.), Medications (Ibuprofen 600mg every 6 hours as needed for pain. Colace 100mg twice a day as needed to keep bowel movements soft and prevent constipation. Continue Vitamin and iron), Discharge to (Home), Discarge date (11/24/24) Discharge Care Plan Instructions - self care instructions given - emergency signs and symptoms including but not limited to pre-eclampsia precautions and signs of infection, PPH & of PPD reviewed with patient. -Follow up with OB Provider in 2 weeks and again at 6 weeks Visit Coding OBGYN Date of Service: Nov 24, 2024 Billing Provider: CASSANDRA MCDOWELL CNM ENDOSCOPY REGISTERED NURSE Common Visit Codes: [id number]/[id number] DISCH DAY >30MIN CASSANDRA MCDOWELL CNM Nov 24, 2024 01:38
[2024-11-24] MEDS ORDERED: IBU600T PO (02:00)
[2024-11-24] MEDS ORDERED: DOCU-94 PO (02:00)
[2024-11-24 03:05] VITALS: BP 121/77; PULSE 62; RESP 17; TEMP 98.4; O2SAT 100
[2024-11-24 07:00] VITALS: BP 133/72; PULSE 68; RESP 20; TEMP 98.3; O2SAT 98
== END 2024-11-24 10:30 | disposition home or self-care (01) | DRG 560 ==
LOC: LDRP 22:08
PROVIDERS: ADMIT Obstetrics & Gynecology; ATTEND Obstetrics & Gynecology
PROC: 3E0DXGC Introduction of Other Therapeutic Substance into Mouth and Pharynx, External Approach (ICD-10-PCS; 2024-11-22)
PROC: 10D07Z6 Extraction of Products of Conception, Vacuum, Via Natural or Artificial Opening (ICD-10-PCS; principal; 2024-11-23)
PROC: 00HU33Z Insertion of Infusion Device into Spinal Canal, Percutaneous Approach (ICD-10-PCS; 2024-11-23)
PROC: 3E0R3BZ Introduction of Anesthetic Agent into Spinal Canal, Percutaneous Approach (ICD-10-PCS; 2024-11-23)
DX: O24.420 Gestational diabetes mellitus in childbirth, diet controlled (principal); Z37.0 Single live birth; D50.9 Iron deficiency anemia, unspecified; O99.02 Anemia complicating childbirth; O99.52 Diseases of the respiratory system complicating childbirth; Z3A.39 39 weeks gestation of pregnancy; J45.909 Unspecified asthma, uncomplicated; O42.02 Full-term premature rupture of membranes, onset of labor within 24 hours of rupture
CPT/HCPCS: 36415; 59025; 59409; 62282; 76815; 80053; 80307; 81001; 81002; 82570; 82948; 82962; 84156; 84550; 85025; 85610; 85730; 86780; 86803; 86850; 86900; 86901; 94760; 96360; 96361; 96365; 96366; G0378; J2590